=== PATIENT | male | born 1970 | race Caucasian/White ===

== ENCOUNTER 2017-01-05 10:58 | Emergency (ER) | payer MEDICAID, OTHER ==
[~2017-01-05] VITALS: Ht 175.3 cm; Wt 69.0 kg
[2017-01-05] MEDS ORDERED: KETOROLAC TROMETHAMINE 60 MG/2 ML VIAL IM ONE (12:15)
[2017-01-05] MEDS ORDERED: CYCLOBENZAPRINE HCL 10 MG TABLET PO ONE (12:15)
[2017-01-05 12:25] VITALS: BP 132/79
== END 2017-01-05 12:33 | disposition home or self-care (01) ==
LOC: EMS 10:59
DX: M54.5 Low back pain (principal)
CPT/HCPCS: 96372; 99283; J1885

== ENCOUNTER 2017-01-06 12:42 | Emergency (ER) | payer MEDICAID ==
[~2017-01-06] VITALS: Ht 175.3 cm; Wt 69.0 kg
[2017-01-06] MEDS ORDERED: METHOCARBAMOL 500 MG TABLET PO ONE (15:00)
[2017-01-06] MEDS ORDERED: KETOROLAC TROMETHAMINE 60 MG/2 ML VIAL IM ONE (15:00)
[2017-01-06 16:18] VITALS: BP 127/77
[2017-01-06] MEDS ORDERED: MORPHINE SULFATE 4 MG/ML SYRINGE IM ONE (16:30)
== END 2017-01-06 17:04 | disposition home or self-care (01) ==
LOC: EMS 12:45
DX: M54.42 Lumbago with sciatica, left side (principal)
CPT/HCPCS: 96372; 99284; J1885; J2270